=== PATIENT | male | born 1945 | race Caucasian/White ===

== ENCOUNTER 2023-01-09 15:33 | Emergency (ER) | payer MEDICARE ==
[2023-01-09] MEDS ORDERED: Bacitracin Oint 1 GM U/D Packet TOP ONE (18:41)
[2023-01-09] MEDS ORDERED: Lidocaine 1% with EPINEPHrine 1:100,000 50 ML MDV SUBCUT STA (18:41)
== END 2023-01-09 19:16 | disposition home or self-care (01) ==
LOC: JP.ED 15:33
DX: S01.81XA Laceration without foreign body of other part of head, initial encounter (principal); Z88.5 Allergy status to narcotic agent; W27.2XXA Contact with scissors, initial encounter
CPT/HCPCS: 12011; 99282